=== PATIENT | male | born 1965 | race Caucasian/White ===

== ENCOUNTER 2019-11-21 09:00 | Outpatient (RCR) | payer OTHER, SELFPAY ==
--- NOTE | 2019-10-06 15:22 | HP.PTEVAL_ITS ---
Patient's Visit Information DIXIE BOURGEOIS is a 54 year old M referred to Physical Therapy by Shun Blackburn MD with a diagnosis of lEFT IMPINGEMENT DYNDROME, BICEP TENDONITIES OSEOARTHRITIS. Date of Evaluation: 10/06/19 Physical Therapist: Freddie Caceres, PT, TAJ, SCS, CSCS - Visit Plan Frequency: 1x/Week Duration: 6 Weeks Plan: see 1xweek for 4 weeks continue to monitor phase 2 program - Subjective Findings: Last year I hurt my back and had back surgery as a result of the rehab I was doing I began to experience left shoulder pain. I'm currently employed for the [employer] and will be off of work till Nov 25. The pain after surgery is better than it was before. - Pain Left Shoulder Pain Intensity (Out of 10): 3 - Objective Maureen Bourgeois presents with a well heal arthroscopic incision. There is no seepage or drainage. He denies any fever, chills or numbness into his arm. 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 MMT was deferred. - Goals Goal 1:: Understand the healing process and Phase 2 HEP Goal Time Frame: 1 Week Goal 2:: Strengthen as appropriate in approximately 3 weeks prior to returning to work Goal Time Frame: 4-6 Weeks - Rehabilitation Potential Physical Therapy Diagnosis: sAME Rehabilitation Potential: Good - Anticipated Interventions Patient/Client Instruction: Educate patient on: Condition, Plan of Care For the Purpose of:: To decrease pain, To increase ROM Therapeutic Exercise to Include: Strength training, Endurance training, Agility training, Flexibilty training For the Purpose of:: To decrease pain, To increase ROM, To improve performance and independence with ADL's Functional electric stimulation: Yes For the Purpose of:: To decrease pain, To increase ROM Thank you for the opportunity to evaluate your patient. For Medicare and Medicare HMO plans, please review the plan of care and approve it. It will need to be FAXED BACK to us at [phone] for Medicare purposes. For Medicare only, by signing this I certify the plan of care. Please let me know if there are questions or concerns regarding this plan of care. Physician Signature:_ Date:
--- NOTE | 2019-11-21 10:57 | HP.PTDCSUM ---
HP - PT D/C Summary It has been my pleasure to treat DIXIE MASCORRO under orders from Shun Blackburn MD, for the diagnosis of lEFT IMPINGEMENT DYNDROME, BICEP TENDONITIES OSEOARTHRITIS for a total of 10 visit(s). Discharge Date: 11/21/19 Please see the following information for a summary of their discharge status. - Subjective Subjective: I see Dr Blackburn today at 2:30. My tentative RTW is Nov 28. Doing okay my shoulder is getting better each week. - Pain Left Shoulder Pain Intensity (Out of 10): 1 - Overall Improvement % Improvement: 80 - Objective Objective/Function: R 42.4 33. L 50 37 - Goals Goal 1:: Understand the healing process and Phase 2 HEP Goal Progress: Goal Met Goal 2:: Strengthen as appropriate in approximately 3 weeks prior to returning to work Goal Progress: Goal Met - Plan Plan: DC - D/C Information Discharge Comments: Was able to return demo of the phase 3 exercises. Asked him to avoid activities above 90 and out the side if possible for a few months. Hopefully can do paperwork. If there are questions or concerns regarding this patient's physical therapy, please feel free to call me at [phone]. Thank you for the referral of this patient. Sincerely, Freddie Caceres, PT, TAJ, SCS, CSCS
== END 2019-11-21 19:00 | disposition home or self-care (01) ==
LOC: PT 09:00
PROVIDERS: Referring Provider Orthopaedic Surgery; Visit Provider Orthopaedic Surgery
DX: M75.42 Impingement syndrome of left shoulder (principal); M75.22 Bicipital tendinitis, left shoulder; M19.012 Primary osteoarthritis, left shoulder
CPT/HCPCS: 97014; 97110; 97140; 97162; G0283